=== PATIENT | female | born 1965 | race American Indian/Alaskan Native ===

== ENCOUNTER 2018-07-12 17:37 | Emergency (ER) | payer MEDICAID ==
[2018-07-12] MEDS ORDERED: Thiamine 100 MG in Sodium Chloride 0.9% 100 ML IV ONE (17:51)
[2018-07-12] MEDS: Sodium Chloride 0.9% 1,000 ML IV SCH ×2 (18:21→19:55)
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
[2018-07-12] MEDS ORDERED: Sodium Chloride 0.9% 1,000 ML IV SCH (21:00)
[2018-07-12] MEDS ORDERED: Albuterol/Ipratropium 3.0-0.5 MG/3 ML Neb Soln NEB ONE (23:11)
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
== END 2018-07-13 01:25 | disposition home or self-care (01) ==
LOC: FB.ED 17:37
DX: S10.93XA Contusion of unspecified part of neck, initial encounter (principal); S50.12XA Contusion of left forearm, initial encounter; J45.909 Unspecified asthma, uncomplicated; F10.129 Alcohol abuse with intoxication, unspecified; Y90.8 Blood alcohol level of 240 mg/100 ml or more; E86.0 Dehydration; Z79.899 Other long term (current) drug therapy; Z88.5 Allergy status to narcotic agent; Y04.8XXA Assault by other bodily force, initial encounter
CPT/HCPCS: 36415; 72040; 80048; 80305; 85025; 94640; 96361; 96365; 99285; G0480; J3411; J7030; J7620-GY

== ENCOUNTER 2019-02-22 01:24 | Emergency (ER) | payer SELFPAY ==
[2019-02-22] MEDS ORDERED: Sodium Chloride 0.9% 10 ML Syringe FLUSH PRN (02:06)
--- NOTE | 2019-02-22 02:10 | EDM.PDOC ---
ED HPI GENERAL MEDICAL PROBLEM - General Chief Complaint: Respiratory Problem Stated Complaint: DIFFICULTY BREATHING Time Seen by Provider: 02/22/19 01:45 Source of Information: Reports: Patient, EMS History Limitations: Reports: No Limitations - History of Present Illness INITIAL COMMENTS - FREE TEXT/NARRATIVE: Luiza drove down from [place] to visit relatives recently, and is reporting vague sxs of SOB and abdominal pains. There is no mary chest pain or palpitations, although she has a cardiac hx of CAD and asthma. Her abdominal sxs feel like a tightness that is periumbilical, and seems to be worse with eating. There is no reported food intolerance, vomiting or diarrhea. She smells of alcohol, and smokes about 1 ppd x 40 years. - Related Data Allergies Allergy/AdvReac Type Severity Reaction Status Date / Time codeine Allergy Hives Verified 02/22/19 01:56 Home Meds: Home Meds Albuterol Sulfate 1 vial INH Q4H PRN 07/12/18 [History] Albuterol [Ventolin HFA] 2 puff INH Q4H PRN 07/12/18 [History] Cetirizine [ZyrTEC] 10 mg PO DAILY 07/12/18 [History] Escitalopram Oxalate 20 mg PO DAILY 07/12/18 [History] Fluticasone Propionate [Flovent] 2 spray INH DAILY 07/12/18 [History] Gabapentin [Neurontin] 600 mg PO TID 07/12/18 [History] LORazepam 1 mg PO BID 07/12/18 [History] Meloxicam 15 mg PO DAILY 07/12/18 [History] Mirtazapine 30 mg PO BEDTIME 07/12/18 [History] Mometasone/Formoterol [Dulera 200 MCG/5 MCG] 2 puff INH BID 07/12/18 [History] Montelukast [Singulair] 10 mg PO BEDTIME 07/12/18 [History] Omeprazole 20 mg PO DAILY 07/12/18 [History] Ranitidine HCl [Ranitidine] 150 mg PO BID PRN 07/12/18 [History] Tiotropium [Spiriva HandiHaler] 2 puff INH DAILY 07/12/18 [History] Past Medical History Cardiovascular History: Reports: [place] Respiratory History: Reports: Asthma, 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: Psychiatric History: Reports: Anxiety, PTSD Social & Family History - Family History Family Medical History: Noncontributory - Caffeine Use Caffeine Use: Reports: None ED ROS GENERAL - Review of Systems Review Of Systems: See Below Constitutional: Reports: Malaise HEENT: Reports: No Symptoms Respiratory: Reports: Shortness of Breath, Cough Cardiovascular: Reports: Dyspnea on Exertion Endocrine: Reports: No Symptoms GI/Abdominal: Reports: Abdominal Pain : Reports: No Symptoms Musculoskeletal: Reports: No Symptoms Skin: Reports: No Symptoms Neurological: Reports: No Symptoms Psychiatric: Reports: Anxiety Hematologic/Lymphatic: Reports: No Symptoms Immunologic: Reports: No Symptoms ED EXAM, GENERAL - Physical Exam Exam: See Below Exam Limited By: No Limitations General Appearance: Alert, WD/WN, No Apparent Distress, Anxious, Obese Eye Exam: Bilateral Eye: EOMI, Normal Inspection, PERRL Ears: Normal External Exam, Normal TMs Nose: Normal Inspection Throat/Mouth: Normal Inspection Head: Normocephalic Neck: Normal Inspection, Non-Tender Respiratory/Chest: No Respiratory Distress, Lungs Clear, Normal Breath Sounds, No Accessory Muscle Use, Chest Non-Tender Cardiovascular: Regular Rate, Rhythm, No Murmur GI/Abdominal: Normal Bowel Sounds, Soft, Non-Tender, No Organomegaly, No Distention, No Mass (Female) Exam: Deferred Rectal (Female) Exam: Deferred Back Exam: Normal Inspection, Full Range of Motion Extremities: Normal Inspection, Normal Range of Motion, Non-Tender Neurological: Alert, Oriented, CN II-XII Intact, Normal Cognition, Normal Gait, No Motor/Sensory Deficits Psychiatric: Normal Affect, Anxious Skin Exam: Warm, Dry, Intact Lymphatic: No Adenopathy Course - Vital Signs Text/Narrative:: Luiza remained stable at the [facility] ED. Screening labs and ekg were baseline. Her BA 0.300. Last Recorded V/S: Last Vital Signs Temp 36.8 C 02/22/19 01:25 Pulse 92 02/22/19 01:25 Resp 18 02/22/19 01:25 BP 106/61 02/22/19 01:25 Pulse Ox 97 02/22/19 01:25 - Orders/Labs/Meds Orders: Active Orders 24 hr Category Date Time Status EKG Documentation Completion [RC] ASDIRECTED Care 02/22/19 02:04 Active Sodium Chloride 0.9% [Saline Flush] Med 02/22/19 02:06 Active 10 ml FLUSH ASDIRECTED PRN Peripheral IV Insertion Adult [OM.PC] Routine Oth 02/22/19 02:06 Ordered EKG 12 Lead [EK] Routine Ther 02/22/19 02:04 Ordered Medication Orders Sodium Chloride (Saline Flush) 10 ml FLUSH ASDIRECTED PRN PRN Reason: Keep Vein Open Labs: Laboratory Tests 02/22/19 02/22/19 02/22/19 Range/Units 02:13 02:13 02:13 WBC 6.8 (4.5-12.0) X10-3/uL RBC 3.99 (3.23-5.20) x10(6)uL Hgb 12.6 (11.5-15.5) g/dL Hct 38.3 (30.0-51.3) % MCV 96.1 H (80-96) fL MCH 31.5 (27.7-33.6) pg MCHC 32.8 (32.2-35.4) g/dL RDW 14.4 (11.5-15.5) % Plt Count 302 (125-369) X10(3)uL MPV 7.2 L (7.4-10.4) fL Neut % (Auto) 40.9 L (46-82) % Lymph % (Auto) 46.9 H (13-37) % [place] % (Auto) 7.6 (4-12) % Eos % (Auto) 4 (1.0-5.0) % Baso % (Auto) 1 (0-2) % Neut # (Auto) 2.8 (1.6-8.3) # Lymph # (Auto) 3.2 (0.6-5.0) # [place] # (Auto) 0.5 (0.0-1.3) # Eos # (Auto) 0.3 (0.0-0.8) # Baso # (Auto) 0.0 (0.0-0.2) # Sodium 144 (135-145) mmol/L Potassium 3.4 L (3.5-5.3) mmol/L Chloride 107 (100-110) mmol/L Carbon Dioxide 26 (21-32) mmol/L BUN 10 (7-18) mg/dL Creatinine 1.0 (0.55-1.02) mg/dL Est Cr Clr Drug Dosing TNP Estimated GFR (MDRD) 58 L (>60) BUN/Creatinine Ratio 10.0 (9-20) Glucose 104 (80-116) mg/dL Calcium 8.0 L (8.6-10.2) mg/dL Troponin I < 0.017 L (<0.017-0.056) ng/mL Ethyl Alcohol 0.30 H* (<0.03) % Meds: Medications Generic Name Dose Route Start Last Admin Trade Name Freq PRN Reason Stop Dose Admin Sodium Chloride 10 ml 02/22/19 02:06 Saline Flush FLUSH ASDIRECTED PRN Keep Vein Open Departure - Departure Time of Disposition: 02:48 Disposition: Home, Self-Care 01 Condition: Fair Clinical Impression: Dyspnea or other respiratory complaints, ETOH abuse - Discharge Information *PRESCRIPTION DRUG MONITORING PROGRAM REVIEWED*: Not Applicable *COPY OF PRESCRIPTION DRUG MONITORING REPORT IN PATIENT NANCY: Not Applicable Referrals: PCP,None [Primary Care Provider] - Forms: ED Department Discharge - Problem List & Annotations (1) ETOH abuse SNOMED Code(s): 59109858 Code(s): F10.10 - ALCOHOL ABUSE, UNCOMPLICATED Status: Acute Current Visit: Yes Annotation/Comment:: I suggested AA or CD counseling. (2) Dyspnea or other respiratory complaints SNOMED Code(s): 371967972 Code(s): BQW7122 - Status: Acute Current Visit: Yes Annotation/Comment :: I advised to stop smoking. - Problem List Review Problem List Initiated/Reviewed/Updated: Yes - My Orders Last 24 Hours: My Active Orders 02/22/19 02:04 EKG Documentation Completion [RC] ASDIRECTED EKG 12 Lead [EK] Routine 02/22/19 02:06 Sodium Chloride 0.9% [Saline Flush] 10 ml FLUSH ASDIRECTED PRN Peripheral IV Insertion Adult [OM.PC] Routine - Assessment/Plan Last 24 Hours: My Active Orders 02/22/19 02:04 EKG Documentation Completion [RC] ASDIRECTED EKG 12 Lead [EK] Routine 02/22/19 02:06 Sodium Chloride 0.9% [Saline Flush] 10 ml FLUSH ASDIRECTED PRN Peripheral IV Insertion Adult [OM.PC] Routine Plan: Follow up with PCP.
== END 2019-02-22 02:55 | disposition home or self-care (01) ==
LOC: FB.ED 01:24
DX: R06.00 Dyspnea, unspecified (principal); F10.129 Alcohol abuse with intoxication, unspecified; Y90.8 Blood alcohol level of 240 mg/100 ml or more; I25.2 Old myocardial infarction; J44.9 Chronic obstructive pulmonary disease, unspecified; F41.9 Anxiety disorder, unspecified; Z88.5 Allergy status to narcotic agent; Z79.899 Other long term (current) drug therapy
CPT/HCPCS: 36415; 80048; 84484; 85025; 93005; 93010; 99284; 99285; G0480

== ENCOUNTER 2021-08-05 20:25 | Emergency (ER) | payer MEDICAID ==
[2021-08-05] MEDS ORDERED: Albuterol/Ipratropium 3.0-0.5 MG/3 ML Neb Soln NEB ONE (20:34)
[2021-08-05] MEDS ORDERED: Sodium Chloride 0.9% 10 ML Syringe FLUSH PRN (20:34)
[2021-08-05] MEDS: Thiamine 100 MG in Sodium Chloride 0.9% 100 ML IV STA ×2 (21:00→21:02)
--- NOTE | 2021-08-05 21:14 | EDM.PDOC ---
ED HPI GENERAL MEDICAL PROBLEM - General Stated Complaint: INTOXICATED PER AMBULANCE PERSONNEL Time Seen by Provider: 08/05/21 20:55 Source of Information: Reports: Patient History Limitations: Reports: No Limitations - History of Present Illness INITIAL COMMENTS - FREE TEXT/NARRATIVE: Patient presented to the ED necause of chest pain, dyspnea and alcohol intoxication. She was drinking a lot tonight and started to have chest pain and dyspnea. She has a history of asthma and has cough/cold for the past 2 days. there is no fever, chills, N/V/D. Chest Pain Score (Numeric/FACES): 6 - Related Data Allergies Allergy/AdvReac Type Severity Reaction Status Date / Time codeine Allergy Hives Verified 02/22/19 01:56 Home Meds: Home Meds Albuterol Sulfate 1 vial INH Q4H PRN 07/12/18 [History] Albuterol [Ventolin HFA] 2 puff INH Q4H PRN 07/12/18 [History] Cetirizine [ZyrTEC] 10 mg PO DAILY 07/12/18 [History] Escitalopram Oxalate 20 mg PO DAILY 07/12/18 [History] Fluticasone Propionate [Flovent] 2 spray INH DAILY 07/12/18 [History] Gabapentin [Neurontin] 600 mg PO TID 07/12/18 [History] LORazepam 1 mg PO BID 07/12/18 [History] Meloxicam 15 mg PO DAILY 07/12/18 [History] Mirtazapine 30 mg PO BEDTIME 07/12/18 [History] Mometasone/Formoterol [Dulera 200 MCG/5 MCG] 2 puff INH BID 07/12/18 [History] Montelukast [Singulair] 10 mg PO BEDTIME 07/12/18 [History] Omeprazole 20 mg PO DAILY 07/12/18 [History] Ranitidine HCl [Ranitidine] 150 mg PO BID PRN 07/12/18 [History] Tiotropium [Spiriva HandiHaler] 2 puff INH DAILY 07/12/18 [History] Azithromycin [Zithromax] 500 mg PO DAILY #5 tab 08/05/21 [Rx] predniSONE [Prednisone] 40 mg PO DAILY #10 tablet 08/05/21 [Rx] Past Medical History Cardiovascular History: Reports: [place] Respiratory History: Reports: Asthma, 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: Anxiety, PTSD Social & Family History - Family History Family Medical History: No Pertinent Family History - Caffeine Use Caffeine Use: Reports: None ED ROS GENERAL - Review of Systems Review Of Systems: See Below Constitutional: Reports: No Symptoms HEENT: Reports: No Symptoms Respiratory: Reports: Shortness of Breath, Wheezing, Cough Cardiovascular: Reports: Chest Pain Endocrine: Reports: No Symptoms GI/Abdominal: Reports: No Symptoms : Reports: No Symptoms Musculoskeletal: Reports: No Symptoms Skin: Reports: No Symptoms Neurological: Reports: No Symptoms Psychiatric: Reports: No Symptoms ED EXAM, GENERAL - Physical Exam Exam: See Below Exam Limited By: No Limitations General Appearance: Alert, No Apparent Distress Eye Exam: Bilateral Eye: PERRL Ears: Normal External Exam, Normal Canal Nose: Normal Inspection, Normal Mucosa, No Blood Throat/Mouth: Normal Inspection, Normal Lips, Normal Teeth, Normal Gums Head: Atraumatic, Normocephalic Neck: Normal Inspection, Supple, Non-Tender, Full Range of Motion Respiratory/Chest: No Respiratory Distress, Lungs Clear, Normal Breath Sounds, Wheezing Cardiovascular: Normal Peripheral Pulses, Regular Rate, Rhythm, No Edema GI/Abdominal: Normal Bowel Sounds, Soft, Non-Tender, No Organomegaly, No Distention, No Abnormal Bruit Back Exam: Normal Inspection, Full Range of Motion Extremities: Normal Inspection, Normal Range of Motion, Non-Tender Neurological: Alert, Oriented, CN II-XII Intact Psychiatric: Normal Affect, Normal Mood Course - Vital Signs Text/Narrative:: Patient refused to have labs/CXR/EKG. She is very rude abd keep cursing. She pulled her IV and doesn't want it. Duoneb X 1 Last Recorded V/S: Last Vital Signs Temp 37.1 C 08/05/21 21:45 Pulse 112 H 08/05/21 21:45 Resp 18 08/05/21 21:45 BP 113/74 08/05/21 21:45 Pulse Ox 93 L 08/05/21 21:45 - Orders/Labs/Meds Orders: Active Orders 24 hr Category Date Time Status Saline Lock Insert [OM.PC] Routine Oth 08/05/21 20:34 Ordered EKG 12 Lead [EK] Routine Ther 08/05/21 20:34 Ordered Meds: Medications Discontinued Medications Generic Name Dose Route Start Last Admin Trade Name Lefty PRN Reason Stop Dose Admin Albuterol/Ipratropium 3 ml 08/05/21 20:34 08/05/21 20:48 Albuterol/Ipratropium 3.0-0.5 Mg/3 Ml Neb Soln NEB 08/05/21 20:35 3 ml ONETIME ONE Administration Thiamine HCl 100 mg/ Sodium 101 mls @ 202 mls/hr 08/05/21 20:36 08/05/21 21:00 Chloride IV 08/05/21 20:37 Not Given NOW STA Sodium Chloride 10 ml 08/05/21 20:34 08/05/21 21:03 Sodium Chloride 0.9% 10 Ml Syringe FLUSH 10 ml ASDIRECTED PRN Administration Keep Vein Open Departure - Departure Time of Disposition: 21:15 Disposition: Home, Self-Care 01 Condition: Good Clinical Impression: Asthma exacerbation, Alcohol intoxication - Discharge Information Prescriptions: predniSONE [Prednisone] 40 mg PO DAILY #10 tablet Azithromycin [Zithromax] 500 mg PO DAILY #5 tab Instructions: Alcohol Intoxication, [id number], Asthma Attack Referrals: PCP,Unknown [Primary Care Provider] - Forms: ED Department Discharge Additional Instructions: Please read discharge instructions on asthma exacerbation and alcohol intoxication Prednisone 20 mg, 2 tablets daily for 5 days Zithromax 500 mg daily Follow up as needed - My Orders Last 24 Hours: My Active Orders 08/05/21 20:34 Saline Lock Insert [OM.PC] Routine EKG 12 Lead [EK] Routine - Assessment/Plan Last 24 Hours: My Active Orders 08/05/21 20:34 Saline Lock Insert [OM.PC] Routine EKG 12 Lead [EK] Routine
== END 2021-08-05 21:44 | disposition home or self-care (01) ==
LOC: FB.ED 20:25
DX: J45.901 Unspecified asthma with (acute) exacerbation (principal); F10.129 Alcohol abuse with intoxication, unspecified; I25.2 Old myocardial infarction; Z79.899 Other long term (current) drug therapy; Z88.5 Allergy status to narcotic agent
CPT/HCPCS: 94640; 99284-25; J3411; J7620-GY

== ENCOUNTER 2022-12-08 02:52 | Emergency (ER) | payer MEDICAID ==
[2022-12-08] MEDS ORDERED: Albuterol/Ipratropium 3.0-0.5 MG/3 ML Neb Soln NEB ONE (03:44)
[2022-12-08] MEDS ORDERED: methylPREDNISolone Sodium Succinate 125 MG/2 ML SDV IM ONE (03:45)
[2022-12-08 03:52] LABS: ESTIMATED GFR 87 mL/min (>60)
[2022-12-08] MEDS ORDERED: Potassium Chloride 20 MEQ Tab.ER PO STA (04:08)
[2022-12-08 04:48] LABS: CORONAVIRUS COVID-19 NAA NEGATIVE (NEGATIVE)
== END 2022-12-08 05:05 | disposition home or self-care (01) ==
LOC: FB.ED 02:52
DX: J45.901 Unspecified asthma with (acute) exacerbation (principal); J06.9 Acute upper respiratory infection, unspecified; E87.6 Hypokalemia; I25.2 Old myocardial infarction; Z88.5 Allergy status to narcotic agent; Z20.822 Contact with and (suspected) exposure to COVID-19
CPT/HCPCS: 0241U; 36415; 71045; 80053; 83880; 84484; 85025; 93005; 93010; 94640; 96372; 99284; 99285; A9270-GY; J2930; J7620

== ENCOUNTER 2023-02-15 08:12 | Day surgery (SDC) | payer MEDICAID ==
[2023-02-15] MEDS ORDERED: Rocuronium 100 MG/10 ML MDV IV ONE (08:13)
[2023-02-15] MEDS ORDERED: Lactated Ringers 1,000 ML IV ONE (08:13)
[2023-02-15] MEDS ORDERED: Propofol 200 MG/20 ML SDV IV ONE (08:13)
[2023-02-15] MEDS ORDERED: Midazolam 1 MG/ML 2 ML SDV IV ONE (08:13)
[2023-02-15] MEDS ORDERED: Ondansetron 4 MG/2 ML SDV IVPUSH ONE (08:13)
[2023-02-15] MEDS ORDERED: fentaNYL 100 MCG/2 ML SDV IV ONE (08:13)
[2023-02-15] MEDS ORDERED: Sugammadex Sodium 200 MG/2 ML VIAL IV ONE (08:13)
[2023-02-15] MEDS ORDERED: HYDROmorphone 2 MG/ML SDV IV ONE (08:13)
[2023-02-15] MEDS ORDERED: Ketorolac 30 MG/ML SDV IVPUSH ONE (08:13)
[2023-02-15] MEDS ORDERED: Glycopyrrolate 0.2 MG/ML 5 ML MDV IV ONE (08:13)
[2023-02-15] MEDS ORDERED: ceFAZolin 2 GM in Sodium Chloride 0.9% 100 ML IV ONE (08:15)
[2023-02-15] MEDS ORDERED: Lactated Ringers 1,000 ML IV SCH (08:15)
[2023-02-15] MEDS ORDERED: ceFAZolin 2 GM Vial IVPUSH ONE (08:15)
[2023-02-15] MEDS ORDERED: Sodium Chloride 0.9% 10 ML Syringe FLUSH PRN (08:15)
[2023-02-15] MEDS ORDERED: Bupivacaine 0.25% 30 ML SDV INJECT ONE (10:23)
[2023-02-15] MEDS ORDERED: Lidocaine 1% with EPINEPHrine 1:100,000 20 ML MDV INJECT ONE (10:23)
== END 2023-02-15 13:30 | disposition home or self-care (01) ==
LOC: FB.SDS 08:12
PROVIDERS: ATTEND Surgery
DX: K43.2 Incisional hernia without obstruction or gangrene (principal); J44.9 Chronic obstructive pulmonary disease, unspecified; F41.9 Anxiety disorder, unspecified; F32.A Depression, unspecified; K21.9 Gastro-esophageal reflux disease without esophagitis; Z79.899 Other long term (current) drug therapy; Z88.8 Allergy status to other drugs, medicaments and biological substances; Z88.5 Allergy status to narcotic agent
CPT/HCPCS: 00752; 88302; 94150; J0690; J1170; J1885; J2250; J2405; J2704; J3010; J3490; J7120

== ENCOUNTER 2023-05-17 06:45 | Day surgery (SDC) | payer MEDICAID ==
[2023-05-17] MEDS ORDERED: Propofol 200 MG/20 ML SDV IV ONE (06:46)
[2023-05-17] MEDS ORDERED: Sodium Chloride 0.9% 10 ML Syringe FLUSH PRN (07:00)
[2023-05-17] MEDS: Lactated Ringers 1,000 ML IV SCH (07:57)
[2023-05-17] MEDS: Simethicone Drops 40 MG/0.6 ML 30 ML Bottle ONE (09:09)
== END 2023-05-17 10:38 | disposition home or self-care (01) ==
LOC: FB.SDS 06:45
PROVIDERS: ATTEND Surgery
DX: Z12.11 Encounter for screening for malignant neoplasm of colon (principal); K21.00 Gastro-esophageal reflux disease with esophagitis, without bleeding; D12.0 Benign neoplasm of cecum; K57.30 Diverticulosis of large intestine without perforation or abscess without bleeding; K44.9 Diaphragmatic hernia without obstruction or gangrene; J44.9 Chronic obstructive pulmonary disease, unspecified; F32.A Depression, unspecified; G89.29 Other chronic pain; M17.12 Unilateral primary osteoarthritis, left knee; F43.10 Post-traumatic stress disorder, unspecified; E66.9 Obesity, unspecified; Z80.0 Family history of malignant neoplasm of digestive organs; Z79.899 Other long term (current) drug therapy; Z68.33 Body mass index [BMI] 33.0-33.9, adult
CPT/HCPCS: 00813; 88305; A9270-GY; J2704; J7120

== ENCOUNTER 2024-02-15 20:42 | Emergency (ER) | payer MEDICAID ==
[2024-02-15 21:31] LABS: APPEARANCE,URINE CLEAR (CLEAR); BACTERIA,URINE FEW (NS); BILIRUBIN,URINE NEGATIVE (NEGATIVE); COLOR,URINE YELLOW (YELLOW); GLUCOSE,URINE NORMAL (NORMAL); KETONES,URINE NEGATIVE (NEGATIVE); LEUKOCYTE ESTERASE,URINE SMALL (NEGATIVE); MUCUS,URINE FEW (NS); NITRITE,URINE NEGATIVE (NEGATIVE); OCCULT BLOOD,URINE MODERATE (NEGATIVE); PROTEIN,URINE NEGATIVE (NEGATIVE); RBC,URINE 0-5 (0-5); SQUAMOUS EPITHELIAL CELLS,UR OCCASIONAL (NS,R,O); UROBILINOGEN,URINE NORMAL (NEGATIVE); WBC,URINE 0-5 (0-5)
[2024-02-15 21:50] LABS: INFLUENZA A NAA NEGATIVE (NEGATIVE); INFLUENZA B NAA NEGATIVE (NEGATIVE); RESPIRATORY SYNCYTIAL VIR NAA NEGATIVE (NEGATIVE)
[2024-02-15 21:56] LABS: CORONAVIRUS COVID-19 NAA NEGATIVE (NEGATIVE)
[2024-02-15] MEDS: Azithromycin 500 MG Tab PO ONE (22:10)
== END 2024-02-15 22:22 | disposition home or self-care (01) ==
LOC: FB.ED 20:42
DX: S39.011A Strain of muscle, fascia and tendon of abdomen, initial encounter (principal); J20.9 Acute bronchitis, unspecified; F17.210 Nicotine dependence, cigarettes, uncomplicated; J44.89 Other specified chronic obstructive pulmonary disease; K21.9 Gastro-esophageal reflux disease without esophagitis; Z79.51 Long term (current) use of inhaled steroids; Z79.899 Other long term (current) drug therapy; Z88.5 Allergy status to narcotic agent; Z88.8 Allergy status to other drugs, medicaments and biological substances; Z90.710 Acquired absence of both cervix and uterus; Z90.49 Acquired absence of other specified parts of digestive tract; X58.XXXA Exposure to other specified factors, initial encounter
CPT/HCPCS: 0241U; 81001; 99283; A9270-GY

== ENCOUNTER 2024-03-31 20:32 | Emergency (ER) | payer MEDICAID ==
[2024-03-31] MEDS ORDERED: LORazepam 2 MG/ML SDV IM PRN (20:48)
== END 2024-03-31 21:10 ==
LOC: FB.ED 20:32
DX: F10.129 Alcohol abuse with intoxication, unspecified (principal); J44.9 Chronic obstructive pulmonary disease, unspecified; K21.9 Gastro-esophageal reflux disease without esophagitis; E66.9 Obesity, unspecified; Z79.899 Other long term (current) drug therapy; Z90.710 Acquired absence of both cervix and uterus; Z88.5 Allergy status to narcotic agent; Z88.8 Allergy status to other drugs, medicaments and biological substances; Y90.9 Presence of alcohol in blood, level not specified
CPT/HCPCS: 82947; 99283; 99284

== ENCOUNTER 2024-04-14 02:17 | Emergency (ER) | payer MEDICAID | END 2024-04-14 02:49 | LOC: FB.ED 02:17 | DX: S00.83XA Contusion of other part of head, initial encounter (principal); F10.129 Alcohol abuse with intoxication, unspecified; J44.89 Other specified chronic obstructive pulmonary disease; K21.9 Gastro-esophageal reflux disease without esophagitis; Z88.5 Allergy status to narcotic agent; Z88.8 Allergy status to other drugs, medicaments and biological substances; Z86.19 Personal history of other infectious and parasitic diseases; Z90.49 Acquired absence of other specified parts of digestive tract; Y90.9 Presence of alcohol in blood, level not specified; W01.0XXA Fall on same level from slipping, tripping and stumbling without subsequent striking against object, initial encounter | CPT/HCPCS: 99284 ==

== ENCOUNTER 2024-09-25 00:44 | Emergency (ER) | payer MEDICAID ==
[2024-09-25] MEDS: Ibuprofen 200 MG Tab PO ONE (01:15)
== END 2024-09-25 01:26 ==
LOC: FB.ED 00:44
DX: S93.601A Unspecified sprain of right foot, initial encounter (principal); F10.920 Alcohol use, unspecified with intoxication, uncomplicated; J44.9 Chronic obstructive pulmonary disease, unspecified; K21.9 Gastro-esophageal reflux disease without esophagitis; Z90.49 Acquired absence of other specified parts of digestive tract; Z90.710 Acquired absence of both cervix and uterus; Z79.899 Other long term (current) drug therapy; Z88.5 Allergy status to narcotic agent; Z88.8 Allergy status to other drugs, medicaments and biological substances; X50.9XXA Other and unspecified overexertion or strenuous movements or postures, initial encounter
CPT/HCPCS: 73610-RT; 99283; 99284; A9270-GY

== ENCOUNTER 2024-11-04 21:51 | Emergency (ER) | payer MEDICAID ==
[2024-11-04] MEDS: Ketorolac 30 MG/ML SDV IM ONE (23:07)
== END 2024-11-04 23:15 | disposition home or self-care (01) ==
LOC: FB.ED 21:51
DX: S92.341A Displaced fracture of fourth metatarsal bone, right foot, initial encounter for closed fracture (principal); J44.89 Other specified chronic obstructive pulmonary disease; K21.9 Gastro-esophageal reflux disease without esophagitis; E66.9 Obesity, unspecified; Z68.34 Body mass index [BMI] 34.0-34.9, adult; Z90.710 Acquired absence of both cervix and uterus; Z90.49 Acquired absence of other specified parts of digestive tract; Z79.899 Other long term (current) drug therapy; Z88.8 Allergy status to other drugs, medicaments and biological substances; Z88.5 Allergy status to narcotic agent; W01.0XXA Fall on same level from slipping, tripping and stumbling without subsequent striking against object, initial encounter
CPT/HCPCS: 73562-RT; 73610-RT; 73630-RT; 96372; 99283; J1885

== ENCOUNTER 2025-04-23 17:58 | Emergency (ER) | payer MEDICAID, OTHER | END 2025-04-23 18:45 | disposition home or self-care (01) | LOC: FB.ED 17:58 | DX: Z02.89 Encounter for other administrative examinations (principal); F10.129 Alcohol abuse with intoxication, unspecified; J44.89 Other specified chronic obstructive pulmonary disease; E66.9 Obesity, unspecified; K21.9 Gastro-esophageal reflux disease without esophagitis; Z90.49 Acquired absence of other specified parts of digestive tract; Z90.710 Acquired absence of both cervix and uterus; Z79.2 Long term (current) use of antibiotics; Z88.5 Allergy status to narcotic agent; Z88.8 Allergy status to other drugs, medicaments and biological substances | CPT/HCPCS: 99284 ==

== ENCOUNTER 2025-10-20 17:31 | Emergency (ER) | payer MEDICAID ==
[2025-10-20] MEDS: LORazepam 2 MG/ML SDV IM ONE (18:04)
[2025-10-20 18:13] LABS: MEAN PLATELET VOLUME 6.5 fL (7.1-12.4); PLATELET COUNT,PLT 248 x10(3)uL (151-488); RED BLOOD CELL COUNT 3.64 x10(6)uL (3.60-5.20); RED CELL DISTRIBUTION WIDTH 15.8 % (12.3-16.5); WHITE BLOOD CELL COUNT,WBC 11.2 x10-3/uL (3.0-10.3)
[2025-10-20 18:16] LABS: BLOOD UREA NITROGEN,BUN 16 mg/dL (7-18); CARBON DIOXIDE,CO2 26 mmol/L (21-32); CHLORIDE,CL 103 mmol/L (100-110); CREATININE 0.7 mg/dL (0.55-1.02); EST CRCL DRUG DOSING (CG) 85.19 mL/min; ESTIMATED GFR 100 mL/min (>60); GLUCOSE RANDOM 114 mg/dL (80-116); POTASSIUM,K 3.7 mmol/L (3.5-5.3); SODIUM,NA 140 mmol/L (135-145)
[2025-10-20 18:22] LABS: A/G RATIO 1.1; ALANINE AMINOTRANSFERASE,ALT 18 U/L (12-36); ASPARTATE AMNIOTRANSFERASE,AST 18 IU/L (5-25); BILIRUBIN TOTAL 1.1 mg/dL (0.1-1.3); PROTEIN TOTAL,TP 7.0 g/dL (6.0-8.0)
[2025-10-20 18:28] LABS: LACTIC ACID 2.1 mmol/L (0.4-2.0)
[2025-10-20 18:29] LABS: LYMPHOCYTES PERCENT MAN 10 % (13-37); MONOCYTES PERCENT MAN 2 % (4-12); SEG NEUTROPHILS PERCENT MAN 88 % (46-82)
[2025-10-20] MEDS: methylPREDNISolone Sodium Succinate 125 MG/2 ML SDV IM ONE (18:59)
== END 2025-10-20 19:25 | disposition home or self-care (01) ==
LOC: FB.ED 17:31
DX: J45.21 Mild intermittent asthma with (acute) exacerbation (principal); F17.210 Nicotine dependence, cigarettes, uncomplicated; F41.9 Anxiety disorder, unspecified; Z88.8 Allergy status to other drugs, medicaments and biological substances; Z88.5 Allergy status to narcotic agent; Z79.899 Other long term (current) drug therapy; Z90.49 Acquired absence of other specified parts of digestive tract
CPT/HCPCS: 36415; 71046; 80053; 83605; 83880; 85025; 86140; 96372; 99285; A9270; J2060; J2919